=== PATIENT | female | born 1950 | race Caucasian/White ===

== ENCOUNTER → 2017-06-01 | Outpatient (CLI) | payer BC ==
--- NOTE | 2017-06-01 14:48 | KCIC ---
CERVICAL SPINE 2-3V History: Muscle spasms in neck and trapezius, right-sided neck pain and stiffness getting worse in recent weeks Comparison: None. Findings: 3 views of the cervical spine are submitted. There is multilevel advanced degenerative disc disease greatest at C4-5 and C5-C6 and to a somewhat lesser degree at C3-4 and C6-7. There is spondylosis at the same levels. There is a lesser degree of degenerative disc disease C7-T1. There is grade 1, almost grade 2 anterior spondylolisthesis at C7-T1. There is very minimal posterior subluxation C4 relative to C5. Atlantoaxial distance is within normal limits. There is multilevel cervical facet degenerative change. There is adequate alignment of lateral masses of C1 relative to C2 although partially obscured by overlying bone on the odontoid view. Impression: 1. There is grade 1 approaching grade 2 anterior spondylolisthesis at C7-T1. 2. There is multilevel advanced degenerative disc disease, multilevel spondylosis. Electronically signed by: Huey Perez MD (06/01/2017 2:45 PM) [facility]
== END | disposition home or self-care (01) ==
LOC: KCIC 14:06
PROVIDERS: ATTEND Nurse Practitioner Family
DX: M43.13 Spondylolisthesis, cervicothoracic region (principal); M47.892 Other spondylosis, cervical region; M50.321 Other cervical disc degeneration at C4-C5 level; M50.322 Other cervical disc degeneration at C5-C6 level; M50.323 Other cervical disc degeneration at C6-C7 level
CPT/HCPCS: 72040

== ENCOUNTER → 2017-12-14 | Outpatient (CLI) | payer MEDICARE, OTHER | END | disposition home or self-care (01) | LOC: KCIC MRI 09:54 | DX: M48.02 Spinal stenosis, cervical region (principal); M43.13 Spondylolisthesis, cervicothoracic region; M50.31 Other cervical disc degeneration, high cervical region; M25.78 Osteophyte, vertebrae | CPT/HCPCS: 72141 ==

== ENCOUNTER → 2018-01-08 | Outpatient (CLI) | payer MEDICARE, OTHER | END | disposition home or self-care (01) | LOC: KCIC DEXA 12:58 | DX: Z13.820 Encounter for screening for osteoporosis (principal); Z78.0 Asymptomatic menopausal state | CPT/HCPCS: 77080 ==

== ENCOUNTER → 2018-01-18 | Outpatient (CLI) | payer MEDICARE ==
[~2018-01-18] MED LIST: IOHEXOL 180 MG/ML 10 ML VIAL.; LIDOCAINE 1% PF 2 ML VIAL.; methylPREDNISolone ACETATE 40 MG/ML VIAL.; methylPREDNISolone ACETATE 80 MG/ML VIAL.
== END ==
LOC: PNCL 08:23
DX: M50.123 Cervical disc disorder at C6-C7 level with radiculopathy (principal); M48.02 Spinal stenosis, cervical region; I10 Essential (primary) hypertension; M19.90 Unspecified osteoarthritis, unspecified site; E78.5 Hyperlipidemia, unspecified; K21.9 Gastro-esophageal reflux disease without esophagitis; H91.90 Unspecified hearing loss, unspecified ear; M72.2 Plantar fascial fibromatosis; Z88.1 Allergy status to other antibiotic agents; Z88.2 Allergy status to sulfonamides; Z88.8 Allergy status to other drugs, medicaments and biological substances; Z79.899 Other long term (current) drug therapy; Z79.82 Long term (current) use of aspirin; Z79.890 Hormone replacement therapy; Z98.890 Other specified postprocedural states; Z90.710 Acquired absence of both cervix and uterus
CPT/HCPCS: 62321; J1030; J1040; Q9965

== ENCOUNTER → 2018-02-19 | Outpatient (CLI) | payer MEDICARE ==
[~2018-02-19] MED LIST changes: -LIDOCAINE 1% PF 2 ML VIAL.; +LIDOCAINE 2% PF 2ML VIAL.
== END | disposition home or self-care (01) ==
LOC: PNCL 08:19
DX: M50.123 Cervical disc disorder at C6-C7 level with radiculopathy (principal); M48.02 Spinal stenosis, cervical region; I10 Essential (primary) hypertension; K21.9 Gastro-esophageal reflux disease without esophagitis; E78.5 Hyperlipidemia, unspecified; M19.90 Unspecified osteoarthritis, unspecified site; H91.90 Unspecified hearing loss, unspecified ear; Z88.1 Allergy status to other antibiotic agents; Z88.8 Allergy status to other drugs, medicaments and biological substances; Z79.82 Long term (current) use of aspirin; Z79.899 Other long term (current) drug therapy; Z90.710 Acquired absence of both cervix and uterus
CPT/HCPCS: 62321; J1030; J1040; J2001; Q9965

== ENCOUNTER → 2018-03-12 | Outpatient (CLI) | payer MEDICARE ==
[~2018-03-12] MED LIST changes: +AMLO10TA4 PO; +ASCO500C PO; +ASPI81TA50 PO; +ESCITALOPRAM OX10 MG PO; +ESOM40CA PO; +ESTR0.62 PO; +FENO134C PO; +GLUC1CAP48 PO; -IOHEXOL 180 MG/ML 10 ML VIAL.; +IOHEXOL 180 MG/ML 10 ML VIAL. ONE; +LEVO50TA5 PO; -LIDOCAINE 2% PF 2ML VIAL.; +LIDOCAINE 2% PF 2ML VIAL. ONE; +OMEG1CAP66 PO; +SIMV20TA3 PO; +VITA400C36 PO; -methylPREDNISolone ACETATE 40 MG/ML VIAL.; +methylPREDNISolone ACETATE 40 MG/ML VIAL. ONE; -methylPREDNISolone ACETATE 80 MG/ML VIAL.; +methylPREDNISolone ACETATE 80 MG/ML VIAL. ONE
--- NOTE | 2018-03-12 12:28 | PAIN ---
DATE OF SERVICE: 03/12/2018 PROGRESS NOTE FOR PAIN CLINIC. DIAGNOSES: Cervical radiculopathy with cervical degenerative disk disease and cervical spinal stenosis. HISTORY OF PRESENT ILLNESS: The patient is a 67-year-old female who returns for followup status post cervical epidural steroid injection x 2. The patient reports about 75% plus improvement in the base of her neck and right arm and shoulder. The patient reports there is much minimal radiation that is into the right arm. It is mainly in the base of the neck, down the right shoulder with on and off intensity, dull, shooting pain in the arm occasionally, but very rarely, only with increased activity. The patient reports she has been increasing most of her activities at home as well as using repetitive motions with the arm, reaching higher with her right arm with much greater ease and comfort. The patient reports she has been sleeping well at night. She states she has some leg cramps recently, but nothing in the neck or the shoulder that is keeping her awake. The patient reports it is dull, shooting, aching at times and tight and it can be radiating, but again much more rarely. The patient reports the pain is a 7 on a scale of 10 at its worst, 5 on average, 3 at its least and it is a 3 today. The patient reports no new motor or sensory deficits. No new bowel or bladder incontinence. No other complaints. PHYSICAL EXAMINATION: VITAL SIGNS: The patient's blood pressure is 131/73, pulse 59, respirations 18 and temperature 98.3 degrees Fahrenheit. Height 5 feet 1-1/2 inches, weight is 212 pounds. GENERAL: The patient is awake, alert, oriented, appropriate, very pleasant demeanor. HEENT EXAMINATION: Shows normocephalic, atraumatic. Extraocular movements are intact and symmetrical. Oral cavity, mucous membranes are moist and pink. Dentition is intact. NECK: Shows anterior throat supple, without palpable lymphadenopathy noted. Swallow reflex is symmetrical. CHEST: Shows normal on inspection. Breath sounds are clear to auscultation bilaterally. HEART: Shows S1, S2 clear. No murmurs auscultated. ABDOMEN: Soft, nontender and nondistended. No palpable organomegaly is noted. No rebound or guarding demonstrated. BACK: Shows spine grossly in the midline. Normal-appearing thoracic kyphosis and lumbar lordotic curvature. Cervical lordotic curvature is maintained as well. Cervical paraspinous muscle shows symmetrical on inspection. On palpation, it shows some mild tenderness, but only diffusely with palpation in the inferior aspect of the cervical paraspinous musculature, more on the right than the left without radiation. The patient has full rotational motion of the cervical spine, both laterally as well as extension and flexion, without significant difficulty or pain reported. EXTREMITIES: Upper extremities show deep tendon reflexes at 2+ in the biceps and triceps tendons. Motor exam is strong with approximately 4 on a scale of 5 with right supervisor glycerin strength and 5/5 on the left. Peripheral pulses are 2+ radial distribution. No peripheral edema is noted. No clubbing or cyanosis. Upper extremities are warm and dry to touch, equal in color and appearance. Options were discussed with the patient. The patient's old chart was reviewed as was her current medication regimen updated. Current review of systems updated today as well. We will proceed with a third in the series of cervical epidural steroid injection today with fluoroscopic guidance. Risks were again discussed including, but not limited to bleeding, infection, possibility of epidural hematoma and subsequent neurological compromise, dural puncture, headaches, spinal cord and/or nerve damage, side effects of steroid medication and poor results regarding pain control. The patient understands and wishes to proceed. The patient will return to the clinic in approximately 2 weeks for followup. She was counseled on her return appointment, activity level and side effects to be aware of. DIAGNOSES: Cervical radiculopathy, cervical spinal stenosis and cervical degenerative disk disease. PROCEDURE: Cervical epidural steroid injection, translaminar approach, C6-C7 level using C-arm fluoroscopic guidance under sterile prep and drape using local anesthetic. MEDICATION INJECTED: A total of 120 mg Depo-Medrol plus 5 mL of preservative-free normal saline and 2 mL of Isovue for contrast. CONDITION AT DISCHARGE: Stable. The patient tolerated procedure well, had no complications. KATLIN SÁNCHEZ MD DR: CRUZ/sivakumar JOB#: [id number] / [id number]
== END | disposition home or self-care (01) ==
LOC: PNCL 08:23
PROVIDERS: ATTEND Anesthesiology
DX: M50.123 Cervical disc disorder at C6-C7 level with radiculopathy (principal); M48.02 Spinal stenosis, cervical region; I10 Essential (primary) hypertension; K21.9 Gastro-esophageal reflux disease without esophagitis; E78.5 Hyperlipidemia, unspecified; M19.90 Unspecified osteoarthritis, unspecified site; Z79.899 Other long term (current) drug therapy; Z88.2 Allergy status to sulfonamides; Z79.82 Long term (current) use of aspirin; Z90.710 Acquired absence of both cervix and uterus; Z88.8 Allergy status to other drugs, medicaments and biological substances; Z88.1 Allergy status to other antibiotic agents; Z98.890 Other specified postprocedural states
CPT/HCPCS: 62321; J1030; J1040; J2001; Q9965

== ENCOUNTER → 2018-06-05 | Outpatient (CLI) | payer MEDICARE ==
[~2018-06-05] MED LIST changes: -IOHEXOL 180 MG/ML 10 ML VIAL. ONE; -LIDOCAINE 2% PF 2ML VIAL. ONE; -methylPREDNISolone ACETATE 40 MG/ML VIAL. ONE; -methylPREDNISolone ACETATE 80 MG/ML VIAL. ONE
--- NOTE | 2018-06-05 12:00 | PAIN ---
DATE OF SERVICE: 06/05/2018 PROGRESS NOTE FOR PAIN CLINIC DIAGNOSES: Cervical radiculopathy with cervical degenerative disk disease, cervical spinal stenosis. HISTORY OF PRESENT ILLNESS: The patient is a 67-year-old female who returns for followup status post cervical epidural steroid injections x 3, last seen 03/12/2018. The patient did very well with about 70% improvement overall. Now the pain returning in the base of the neck, right greater than left shoulder and upper extremities with some numbness in the right and left hands and some tingling in the left thumb. The patient reports she was increasing her household activities, distance walking, doing activities at home, driving easier with much better use of her upper extremities, was very comfortable, was sleeping well at night. The patient reports she still sleeps fairly well at night. The pain is worse with repetitive motions of the upper extremities and is causing some headaches as well. The patient reports the pain is aching, radiating to the upper extremities, again worse on the right, rates as an 8 on a scale of 10 at its worst, 6-7 on average, 2 at its least and is a 5 today. The patient reports no new motor or sensory deficits or other complaints. PHYSICAL EXAMINATION: VITAL SIGNS: The patient's blood pressure is 136/64, pulse 62, respirations 16, temperature 98.2 degrees Fahrenheit, height is 5 feet 2 inches, weight is 218 pounds. GENERAL: The patient is awake, alert, oriented, appropriate, very pleasant demeanor. HEENT: Head is normocephalic, atraumatic. Extraocular movements are intact and symmetrical. Oral cavity shows mucous membranes moist and pink. Dentition is intact. NECK: Shows anterior throat supple without palpable lymphadenopathy noted. Swallow reflex symmetrical. CHEST: Shows normal with inspection. Breath sounds clear to auscultation bilaterally. HEART: Shows S1, S2 clear. No murmurs auscultated. ABDOMEN: Soft, nontender, nondistended, obese. No palpable organomegaly is noted. No rebound or guarding demonstrated. BACK: Shows spine grossly in the midline. Slight exaggeration of thoracic kyphosis, some minor flattening of cervical lordotic curvature and lumbar lordotic curvature. Cervical paraspinous muscle shows symmetrical on inspection. On palpation shows some mild tenderness diffusely in the inferior aspect of cervical paraspinous musculature, again slightly more tender on the right than the left. This is true into the superior medial trapezius, more on the right than left and no trigger points, no radiation, no atrophy or hypertrophy. The patient has good rotational motion of cervical spine, both laterally as well as extension and flexion with some minor tenderness with far right lateral rotation past 45 degrees, but not left. EXTREMITIES: Upper extremities show deep tendon reflexes at 2+ in the biceps, triceps tendons. Motor exam is approximately 4 on a scale of 5 with right imaging tech strength and 5/5 on the left; bicep and tricep flexion likewise 4/5 right and 5/5 left. Peripheral pulses are 2+ radial distribution. No peripheral edema is noted bilaterally. PLAN: Options were discussed with the patient. The patient's old chart was reviewed as her current medication regimen updated. Current review of systems updated today as well. The patient is early for a repeat cervical injection today, we will try Medrol Dosepak. Also, the patient was given a refill of tramadol 50 mg. The patient was given 20 of these in January and still has 4 left. The patient was given instruction as well as side effects to be aware of with each of the medications and will follow up as scheduled for cervical epidural steroid injection in July. KATLIN SÁNCHEZ MD DR: CRUZ/sivakumar JOB#: [id number] / [id number]
== END | disposition home or self-care (01) ==
LOC: PNCL 08:01
PROVIDERS: ATTEND Anesthesiology
DX: M50.10 Cervical disc disorder with radiculopathy, unspecified cervical region (principal); M48.02 Spinal stenosis, cervical region
CPT/HCPCS: G0463

== ENCOUNTER → 2018-07-22 | Outpatient (CLI) | payer MEDICARE ==
[~2018-07-22] MED LIST changes: +IOHEXOL 180 MG/ML 10 ML VIAL. ONE; +methylPREDNISolone ACETATE 40 MG/ML VIAL. ONE; +methylPREDNISolone ACETATE 80 MG/ML VIAL. ONE
--- NOTE | 2018-07-22 14:27 | PAIN ---
DATE OF SERVICE: 07/22/2018 DIAGNOSES: Cervical radiculopathy with cervical degenerative disk disease and cervical spinal stenosis. HISTORY OF PRESENT ILLNESS: The patient is a 67-year-old female who returns for followup status post cervical epidural steroid injections x 3, most recently 03/12/2018. The patient returned in May. We tried a Medrol Dosepak, which she reports did very well for about a month. The patient reports pain returning in the base of the neck, right upper extremity, right shoulder, right arm with numbness and tingling in the right hand. No new motor or sensory deficits, but the pain is becoming more constant. It is radiating, shooting. She describes it an 8 on a scale of 10 at its worst, 5 on average and a 0 at its least and is a 5 today. The patient reports it is waking her from sleep occasionally, but generally she is feeling fairly well. The patient reports no new motor or sensory deficits, no new changes. PHYSICAL EXAMINATION: VITAL SIGNS: The patient's blood pressure 119/61, pulse 65, respirations 18, temperature 98.1 degrees Fahrenheit, height is 5 feet 1-1/2 inches, weight is 217 pounds. GENERAL: The patient is awake, alert, oriented, appropriate, very pleasant demeanor. HEENT: Head is normocephalic, atraumatic. The patient wears eyeglasses. Extraocular movements intact and symmetrical. Oral cavity: Mucous membranes moist and pink. Dentition is intact. NECK: Shows anterior throat supple without palpable lymphadenopathy noted. Swallow reflex symmetrical. CHEST: Shows normal with inspection. Breath sounds clear to auscultation bilaterally. HEART: Shows S1, S2 clear. No murmurs auscultated. ABDOMEN: Soft, obese, nontender, nondistended. No palpable organomegaly is noted. No rebound or guarding demonstrated. BACK: Shows spine grossly in the midline, normal-appearing cervical lordotic curvature, slight increase in thoracic kyphotic curvature, some mild flattening of lumbar lordotic curvature. Cervical paraspinous muscle shows symmetrical on inspection, with palpation shows some moderate tenderness, but only diffusely in the low cervical distribution bilaterally into the right superior and medial trapezius, but without radiation, without trigger points. The patient has good rotational motion of cervical spine, both laterally as well as extension and flexion without significant difficulty. EXTREMITIES: Upper extremities show deep tendon reflexes 2+ in the biceps and triceps tendons. Motor exam is approximately 4 on a scale of 5 on the right with sports information director strength and 5/5 on the left. Peripheral pulses are 2+ radial distribution. No peripheral edema is noted bilaterally. Options were discussed with the patient. The patient's old chart was reviewed, her current medication regimen updated. Current review of systems updated today as well. We will proceed with a first in a series of cervical epidural steroid injection today with fluoroscopic guidance. Risks were again discussed including, but not limited to bleeding, infection, possibility of epidural hematoma, subsequent neurological compromise, dural puncture, headaches, spinal cord and/or nerve damage, side effects of steroid medication and poor results regarding pain control. The patient understands and wished to proceed. The patient will return to clinic in approximately 2 weeks for followup, was counseled on return appointment, activity level and side effects to be aware of. DIAGNOSES: Cervical radiculopathy, cervical spinal stenosis and cervical degenerative disk disease. PROCEDURE: Cervical epidural steroid injection, translaminar approach at the C6-C7 level using C-arm fluoroscopic guidance under sterile prep and drape using local anesthetic. MEDICATION INJECTED: A total of 120 mg of Depo-Medrol, plus 5 mL of preservative-free normal saline and 2 mL of Isovue for contrast. CONDITION AT DISCHARGE: Stable. The patient tolerated the procedure well, had no complications. KATLIN SÁNCHEZ MD DR: CRUZ/sivakumar JOB#: [id number] / [id number]
== END | disposition home or self-care (01) ==
LOC: PNCL 08:36
PROVIDERS: ATTEND Anesthesiology
DX: M50.123 Cervical disc disorder at C6-C7 level with radiculopathy (principal); M48.02 Spinal stenosis, cervical region; Z88.2 Allergy status to sulfonamides; Z88.1 Allergy status to other antibiotic agents; Z88.8 Allergy status to other drugs, medicaments and biological substances
CPT/HCPCS: 62321; J1030; J1040; Q9965

== ENCOUNTER → 2018-08-05 | Outpatient (CLI) | payer MEDICARE ==
--- NOTE | 2018-08-05 10:59 | PAIN ---
DATE OF SERVICE: 08/05/2018 PROGRESS NOTE FOR PAIN CLINIC DIAGNOSES: Cervical radiculopathy with cervical degenerative disk disease and cervical spinal stenosis. HISTORY OF PRESENT ILLNESS: The patient is well is a 67-year-old female who returns for followup status post cervical epidural steroid injection x 1. The patient reports about 40% improvement on the right side overall but doing quite well first few days after the injection with some numbness and tingling now gone in the right hand, which was there previously. The patient reports had some intermittent pain on the left side since the last injection but not newly compared to that on the right. The patient reports it is sharp, shooting, tingling, sometimes numbness, burning, aching, on and off in intensity, worse with activity, worse with repetitive motion of the right arm. Again doing much better than it was. Does not awaken her from sleep at night. The patient reports it is a 5 on a scale of 10 at its worst, 2 on average and 0 at its least and is a 2 today. The patient reports no new motor or sensory deficits and no new changes. PHYSICAL EXAMINATION: VITAL SIGNS: The patient's blood pressure is 140/68, pulse 59, respirations 16 and temperature 98.2 degrees Fahrenheit. Height is 5 feet 1 inches and weight is 214 pounds. GENERAL: The patient is awake, alert, oriented, appropriate and very pleasant demeanor. HEENT: Head shows normocephalic and atraumatic. Extraocular movements are intact and symmetrical. Oral cavity: Mucous membranes are moist and pink. Dentition is intact. NECK: Shows anterior throat supple without palpable lymphadenopathy noted. Swallow reflex symmetrical. CHEST: Shows normal with inspection. Breath sounds clear to auscultation bilaterally. HEART: Shows S1 and S2 clear. No murmurs auscultated. ABDOMEN: Obese, soft, nontender and nondistended. No palpable organomegaly is noted. No rebound or guarding demonstrated. BACK: Shows spine grossly in the midline. Slight exaggeration of the thoracic kyphosis and some minor flattening of the cervical lordotic curvature and lumbar lordotic curvature. Cervical paraspinous musculature shows symmetrical on inspection, on palpation shows some moderate tenderness diffusely bilaterally but only diffusely without radiation. The patient has good rotational motion of the cervical spine, both laterally as well as extension and flexion without exacerbation of pain. EXTREMITIES: Upper extremities show deep tendon reflexes at 2+ in the biceps, triceps tendons. Motor exam is approximately 4 on a scale of 5 on the right and 5/5 on the left with otm consultant strength bicep and tricep flexion. Peripheral pulses are 2+ radial distribution. No peripheral edema is noted bilaterally. Options were discussed with the patient. The patient's old chart was reviewed as well as her current medication regimen updated. Current review of systems updated today as well and we will proceed with a second cervical epidural steroid injection today with fluoroscopic guidance. Risks were again discussed including, but not limited to bleeding, infection, possibility of epidural compromise, dural puncture, headaches, spinal cord and/or nerve damage, side effects of steroid medication and poor results regarding pain control. The patient understands and wished to proceed. The patient will return to the clinic in approximately 2 weeks for followup, was counseled as to return appointment, activity level and side effects to be aware of. DIAGNOSES: Cervical radiculopathy with cervical spinal stenosis and cervical degenerative disk disease. PROCEDURE: Cervical epidural steroid injection, translaminar approach C6-C7 level using C-arm fluoroscopic guidance under sterile prep and drape using local anesthetic. MEDICATION INJECTED: A total of 120 mg Depo-Medrol plus 5 mL of preservative-free sleep and 2 mL Isovue for contrast. CONDITION AT DISCHARGE: Stable. The patient tolerated procedure well and had no complications. KATLIN SÁNCHEZ MD DR: CRUZ/sivakumar JOB#: [id number] / [id number]
== END | disposition home or self-care (01) ==
LOC: PNCL 08:03
PROVIDERS: ATTEND Anesthesiology
DX: M50.123 Cervical disc disorder at C6-C7 level with radiculopathy (principal); M48.02 Spinal stenosis, cervical region; Z88.2 Allergy status to sulfonamides; Z88.1 Allergy status to other antibiotic agents; Z88.8 Allergy status to other drugs, medicaments and biological substances
CPT/HCPCS: 62321; J1030; J1040; Q9965

== ENCOUNTER → 2018-08-27 | Outpatient (CLI) | payer MEDICARE ==
--- NOTE | 2018-08-27 11:13 | PAIN ---
DATE OF SERVICE: 08/27/2018 PROGRESS NOTE FOR PAIN CLINIC DIAGNOSES: Cervical radiculopathy with cervical degenerative disk disease and cervical spinal stenosis. HISTORY OF PRESENT ILLNESS: The patient is a 67-year-old female who returns for followup status post cervical epidural steroid injections x 2. The patient reports about 50% improvement overall with the neck and right upper extremity pain. The patient reports her pain as a 6 on a scale of 10 at its worst, 3 on average and 1 at least over the last week and is a 1 today. The patient reports it is aching and dull, radiating to the right upper extremity, but the right arm is doing much better. She still has some pain in the base of the neck and right shoulder, but it is still helping. The patient reports she has been increasing her activity with distance walking, doing activities at home, traveling with much greater ease and comfort, sleeping better at night, does not awaken her from sleep. The patient reports occasional radiation in the right upper extremity, mostly just in the base of the neck, worse with extension and right lateral rotation. The patient reports no new motor or sensory deficits, no new bowel or bladder incontinence or other complaints. PHYSICAL EXAMINATION: VITAL SIGNS: The patient's blood pressure 126/68, pulse 62, respirations 18, temperature 98.4 degrees Fahrenheit, weight is 215 pounds. GENERAL: The patient is awake, alert, oriented, appropriate, very pleasant demeanor. The patient is accompanied by her . HEENT: Head shows normocephalic, atraumatic. Extraocular movements intact and symmetrical. Oral cavity: Mucous membranes moist and pink. Dentition is intact. NECK: Shows anterior throat supple without palpable lymphadenopathy noted. Swallow reflex is symmetrical. CHEST: Shows normal on inspection. Breath sounds clear to auscultation bilaterally. HEART: Shows S1, S2 clear. No murmurs auscultated. ABDOMEN: Soft, nontender, nondistended. No palpable organomegaly is noted. No rebound or guarding demonstrated. BACK: Shows spine grossly in the midline, normal-appearing cervical lordotic curve as well the thoracic kyphotic curvature is slightly exaggerated and some flattening of lumbar lordotic curvature. Cervical paraspinous muscle shows symmetrical on inspection, on palpation shows some moderate tenderness diffusely bilaterally, but only diffusely without radiation. The patient has good rotational motion of cervical spine, both laterally greater than 45 degrees right and left as well as extension greater than 10 degrees, forward flexion 45 degrees without significant pain reported. EXTREMITIES: The patient's upper extremities show deep tendon reflexes 2+ in the biceps and triceps tendons. Motor exam is approximately 4 on a scale of 5 on the right, 5/5 on the left with financial systems director strength, biceps and triceps flexion. Peripheral pulses are 2+ radial bilaterally without edema noted. PLAN: Options were discussed with the patient. The patient's old chart was reviewed as her current medication regimen updated. Current review of systems updated today as well. We will proceed with a third in the series of cervical epidural steroid injection today with fluoroscopic guidance. Risks were again discussed including, but not limited to bleeding, infection, possibility of epidural hematoma and subsequent neurological compromise, dural puncture, headaches, spinal cord and/or nerve damage, side effects of steroid medication and poor results regarding pain control. The patient understands and wished to proceed. The patient to return to clinic in approximately 2 weeks for followup, was counseled as to return appointment, activity level and side effects to be aware of. DIAGNOSES: Cervical radiculopathy with cervical degenerative disk disease and cervical spinal stenosis. PROCEDURE: Cervical epidural steroid injection, translaminar approach at the C6-C7 level using C-arm fluoroscopic guidance under sterile prep and drape using local anesthetic. MEDICATION INJECTED: A total of 120 mg Depo-Medrol plus 5 mL of preservative-free normal saline and 2 mL of Isovue for contrast. CONDITION AT DISCHARGE: Stable. The patient tolerated the procedure well, had no complications. KATLIN SÁNCHEZ MD DR: CRUZ/sivakumar JOB#: [id number] / [id number]
== END | disposition home or self-care (01) ==
LOC: PNCL 08:48
PROVIDERS: ATTEND Anesthesiology
DX: M50.123 Cervical disc disorder at C6-C7 level with radiculopathy (principal); M48.02 Spinal stenosis, cervical region; Z88.2 Allergy status to sulfonamides; Z88.1 Allergy status to other antibiotic agents; Z88.8 Allergy status to other drugs, medicaments and biological substances
CPT/HCPCS: 62321; J1030; J1040; Q9965